=== PATIENT | male | born 1970 | race Caucasian/White ===

== ENCOUNTER 2022-12-07 18:39 | Emergency (ER) | payer SELFPAY ==
[~2022-12-07] VITALS: Ht 167.6 cm; Wt 82.0 kg
[2022-12-07 23:19] VITALS: BP 147/101
[2022-12-08] MEDS ORDERED: GUAI237L83 MT (02:06)
== END 2022-12-08 02:21 | disposition home or self-care (01) ==
LOC: ER 20:22
DX: B34.9 Viral infection, unspecified (principal)
CPT/HCPCS: 71045; 93005; 99283